=== PATIENT | male | born 1990 | race Caucasian/White ===

== ENCOUNTER 2021-04-14 10:51 | Emergency (ER) | payer OTHER ==
--- NOTE | 2021-04-14 18:03 | EDPHYS ---
Physician Documentation [facility] Name: Osiel Friedman Age: 31 yrs Sex: Male : 1990 Arrival Date: 04/14/2021 Time: 10:53 Bed Waiting Private MD: ED Physician Valentin Shannon HPI: 04/14 11:17 This 31 yrs old Male presents to ER via Ambulatory with complaints of cp Allergic Reaction, Rash. 11:17 The patient presents with rash, that is diffuse. Onset: The symptoms/episode cp began/occurred yesterday. 11:17 Associated signs and symptoms: Pertinent positives: achiness. Possible causes: cp antibiotics, Bactrim, recently finished 10 day course that was prescribed after removal of cyst on back. At home the patient or guardian has treated the symptoms with took Sneha. Severity of symptoms: in the emergency department the symptoms are unchanged despite home interventions. Historical: - Allergies: 11:17 No Known Allergies; iw - Social history:: Smoking status: Patient denies any tobacco usage or history of. ROS: 11:19 Constitutional: Positive for chills, Negative for fever, poor PO intake. cp 11:19 Respiratory: Negative for cough, shortness of breath, wheezing. 11:19 Abdomen/GI: Negative for abdominal pain, nausea, vomiting, and diarrhea. 11:19 Skin: Positive for rash, diffusely. 11:19 All other systems are negative. Exam: 11:20 Constitutional: The patient appears in no acute distress, alert, awake, non-toxic, well cp developed, well nourished. 11:20 Cardiovascular: Rate: normal. 11:20 Respiratory: the patient does not display signs of respiratory distress, Respirations: normal, no use of accessory muscles, no retractions, labored breathing, is not present. 11:20 Skin: consistent with urticaria, and is diffusely located. Vital Signs: 11:13 BP 124 / 80; Pulse 96; Resp 16; Temp 97.8; Pulse Ox 100% on R/A; iw MDM: 11:22 Patient medically screened. cp 11:22 Data reviewed: vital signs, nurses notes. cp 11:22 Counseling: I had a detailed discussion with the patient and/or guardian regarding: the cp historical points, exam findings, and any diagnostic results supporting the discharge/admit diagnosis, to return to the emergency department if symptoms worsen or persist or if there are any questions or concerns that arise at home. Administered Medications: No medications were administered Disposition: 11:30 Chart complete. cp 16:50 Co-signature as Attending Physician, Valentin Shannon MD. rn Disposition Summary: 04/14/21 11:22 Discharge Ordered Location: Home cp Problem: new cp Symptoms: are unchanged cp Condition: Stable cp Diagnosis - Allergic urticaria cp Followup: cp - With: Private Physician - When: 2 - 3 days - Reason: Worsening of condition Discharge Instructions: - Discharge Summary Sheet cp - Hives cp Forms: - Medication Reconciliation Form cp - Work release form iw - Thank You Letter cp - Antibiotic Education cp - Prescription Opioid Use cp Prescriptions: - Pepcid 20 mg Oral Tablet - take 1 tablet by ORAL route every 12 hours for 5 days; 10 tablet; Refills: 0, cp Product Selection Permitted - Prednisone 20 mg Oral Tablet - take 2 tablets by ORAL route once daily for 5 days; 10 tablet; Refills: 0, cp Product Selection Permitted Signatures: Soheila Chen RN RN iw Valentin Shannon MD MD rn Gabriel Rosario PA PA cp Corrections: (The following items were deleted from the chart) 11:19 11:17 Onset: The symptoms/episode began/occurred this morning, cp cp
--- NOTE | 2021-04-14 18:03 | ER ---
Nurse's Notes [facility] Name: Osiel Friedman Age: 31 yrs Sex: Male : 1990 Arrival Date: 04/14/2021 Time: 10:53 Bed Waiting Private MD: Diagnosis: Allergic urticaria Presentation: 04/14 11:09 Chief complaint: Patient states: thinks he is having an allergic reaction to a iw medication, started Bactrim 10 days ago, is having chills, shakiness and rash that started yesterday morning, rash is all over body, no fever but does have some achiness. Coronavirus screen: chills. Ebola Screen: Patient negative for fever greater than or equal to 101.5 degrees Fahrenheit, and additional compatible Ebola Virus Disease symptoms Patient denies exposure to infectious person. Patient denies travel to an Ebola-affected area in the 21 days before illness onset. No symptoms or risks identified at this time. 11:09 Method Of Arrival: Ambulatory iw 11:13 Initial Sepsis Screen: Does the patient meet any 2 criteria? No. Patient's initial iw sepsis screen is negative. Does the patient have a suspected source of infection? No. Patient's initial sepsis screen is negative. Risk Assessment: Do you want to hurt yourself or someone else? Patient reports no desire to harm self or others. Onset of symptoms was April 13, 2021. 11:13 Acuity: ANTONY 4 iw 11:14 Onset: The symptoms/episode began/occurred yesterday. Anaphylaxis evaluation, no signs iw or symptoms of anaphylaxis were noted. Historical: - Allergies: 11:17 No Known Allergies; iw - Social history:: Smoking status: Patient denies any tobacco usage or history of. Screenin:18 Abuse screen: Denies threats or abuse. Denies injuries from another. Nutritional iw screening: No deficits noted. Tuberculosis screening: No symptoms or risk factors identified. Fall Risk None identified. Assessment: 11:17 General: Appears in no apparent distress. Behavior is calm, cooperative. Pain: Denies iw pain. Neuro: Level of Consciousness is awake, alert, obeys commands, Oriented to person, place, time, situation. Cardiovascular: Patient's skin is warm and dry. Respiratory: Airway is patent Respiratory effort is even, unlabored, Breath sounds are clear bilaterally. Derm: Skin is intact, is healthy with good turgor. Musculoskeletal: Range of motion: intact in all extremities. Vital Signs: 11:13 BP 124 / 80; Pulse 96; Resp 16; Temp 97.8; Pulse Ox 100% on R/A; iw ED Course: 10:53 Patient arrived in ED. as 11:12 Gabriel Rosario PA is PHCP. cp 11:12 Valentin Shannon MD is Attending Physician. cp 11:13 Triage completed. iw 11:13 Arm band placed on. iw 11:17 Soheila Chen, RN is Primary Nurse. iw 11:18 No provider procedures requiring assistance completed. Patient did not have IV access iw during this emergency room visit. Administered Medications: No medications were administered Outcome: 11:22 Discharge ordered by . cp 11:41 Patient left the ED. iw Signatures: Evelin James as Soheila Chen, RN RN iw Gabriel Rosario PA PA cp
[2021-04-15 21:03] VITALS: BP 124/80; TEMP 97.8; O2SAT 100
== END 2021-04-14 11:41 | disposition home or self-care (01) ==
LOC: ER 10:51
DX: L50.0 Allergic urticaria (principal)